=== PATIENT | female | born 1965 | race Native Hawaiian/Other Pacific Islander ===

== ENCOUNTER 2017-03-31 11:46 | Emergency (ER) | payer BC ==
[2017-03-31 12:06] VITALS: BMI 28.8
[2017-03-31] MEDS ORDERED: Sodium Chloride 0.9% 500 ML IV ONE (13:05)
--- NOTE | 2017-03-31 13:32 | C.PDOC ---
History Of Present Illness 51 yr old female with PMhx of hyperthyroid, presents to the ER for evaluation of fever, generalized myalgia, rhinorrhea and non productive cough associated with SOB which all started today. Patient reports getting the flu shot this year. Denies history of diabetes, CHF, COPD. Denies chest pain, nausea, vomiting, abdominal pain, urinary symptoms or headache. Time Seen by Provider: 03/31/17 13:04 Chief Complaint (Nursing): Shortness Of Breath History Per: Patient History/Exam Limitations: no limitations Onset/Duration Of Symptoms: Sudden Onset (today) Past Medical History Reviewed: Historical Data, Nursing Documentation, Vital Signs Vital Signs: Last Vital Signs Temp 98.9 F 03/31/17 15:10 Pulse 92 H 03/31/17 15:10 Resp 18 03/31/17 15:10 BP 109/62 03/31/17 15:10 Pulse Ox 97 03/31/17 15:10 - Medical History PMH: Hypothyroidism, Migraine - [facility] INDIVID PSYCHOTHERAP NEC (10/04/13) Family History: States: No Known Family Hx - Social History Hx Tobacco Use: No Hx Alcohol Use: No Hx Substance Use: No - Immunization History Hx Tetanus Toxoid Vaccination: No Hx Influenza Vaccination: Yes Hx Pneumococcal Vaccination: No Review Of Systems Except As Marked, All Systems Reviewed And Found Negative. Constitutional: Positive for: Fever (subjective), Other ((+) generalized myalgia ) ENT: Positive for: Nose Discharge (clear rhinorrhea). Negative for: Ear Pain, Throat Pain, Throat Swelling Cardiovascular: Negative for: Chest Pain, Palpitations Respiratory: Positive for: Cough (non produtive), Shortness of Breath. Negative for: Wheezing Gastrointestinal: Negative for: Nausea, Vomiting, Abdominal Pain, Diarrhea, Constipation Genitourinary: Negative for: Dysuria, Frequency, Incontinence, Hematuria, Vaginal Discharge, Vaginal Bleeding, Pelvic Pain Skin: Negative for: Rash Neurological: Negative for: Weakness, Numbness, Incoordination, Change in Speech , Confusion, Seizures, Altered Mental Status, Headache, Dizziness Physical Exam - Physical Exam Appears: Well, Non-toxic, No Acute Distress Skin: Warm, Dry, No Rash Head: Atraumatic, Normacephalic Eye(s): bilateral: Normal Inspection, PERRL, EOMI Nose: Normal Oral Mucosa: Moist Lips: Normal Appearing Throat: Normal, No Erythema, No Exudate, No Drooling Neck: Normal, Normal ROM, Supple Chest: Symmetrical, No Tenderness Cardiovascular: Rhythm Regular, No Murmur, Other (tachycardic) Respiratory: Normal Breath Sounds, No Rales, No Rhonchi, No Stridor, No Wheezing Gastrointestinal/Abdominal: Normal Exam, Soft, No Tenderness, No Guarding, No Rebound Back: Normal Inspection, No CVA Tenderness Extremity: Normal ROM, No Swelling Neurological/Psych: Oriented x3, Normal Speech, Normal Motor Gait: Steady ED Course And Treatment - Laboratory Results Result Diagrams: 03/31/17 13:43 03/31/17 13:43 O2 Sat by Pulse Oximetry: 98 (RA) Pulse Ox Interpretation: Normal - Radiology CXR: Viewed By Me, Read By Radiologist CXR Interpretation: Yes: No Acute Disease Medical Decision Making Medical Decision Making: PLAN: * CXR * EKG * VBG * CBC * CMP * Influenza * Urinalysis * Toradol IVP * Sodium Chloride IV Symptoms are consistent with viral illness. Cxray is negative for active disease, fracture, consolidation or effusion as read by me and confirmed by radiologist. EKG shows NSR at 91bpm with normal intervals and no ST changes. Labs grossly normal. Influenza negative but symptoms consistent with flu. Well appearing and tolerating po. Normal vitals after anti-pyretic and IVF. Given detailed return instructions. Disposition - Disposition Disposition: HOME/ ROUTINE Disposition Time: 14:42 Condition: GOOD Additional Instructions: Follow-up with PMD within 2 days. Return to ED if condition worsens. Motrin or tylenol for fever. Instructions: Viral Syndrome (ED) Forms: [facility] (Malay), Work Excuse - Clinical Impression Clinical Impression: Viral illness - Scribe Statement The provider has reviewed the documentation as recorded by the Mamadouibalena Kim Provider Attestation: All medical record entries made by the Mamadouibe were at my direction and personally dictated by me. I have reviewed the chart and agree that the record accurately reflects my personal performance of the history, physical exam, medical decision making, and the department course for this patient. I have also personally directed, reviewed, and agree with the discharge instructions and disposition.
[2017-03-31 13:46] LABS: BASO % 0.2 % (0.0-2.0); EOS % 0.2 % (0.0-4.0); HEMOGLOBIN 12.6 g/dL (11.0-16.0); LYMPH # 0.3 K/uL (1.0-4.3); MEAN CELL VOLUME 80.5 fL (81.0-99.0); MEAN CORPUSCULAR HEMOGLOBIN 27.6 pg (27.0-31.0); MEAN CORPUSCULAR HGB CONC 34.3 g/dL (33.0-37.0); MEAN PLATELET VOLUME 7.8 fL (7.2-11.7); MONO # 0.4 K/uL (0.0-0.8); MONO % 5.9 % (0.0-10.0); NEUT # 5.9 K/uL (1.8-7.0); NEUT % 88.7 % (50.0-75.0); PLATELET COUNT 278 K/uL (130-400); RBC 4.57 Mil/uL (3.80-5.20); RED CELL DISTRIBUTION WIDTH 13.6 % (11.5-14.5); WHITE BLOOD COUNT 6.7 K/uL (4.8-10.8)
[2017-03-31 14:00] LABS: ALB/GLOB RATIO 1.3 (1.0-2.1); ALBUMIN 4.1 g/dL (3.5-5.0); ALT/SGPT 24 U/L (9-52); AST/SGOT 19 U/L (14-36); BLOOD UREA NITROGEN 8 mg/dL (7-17); CALCIUM 8.7 mg/dl (8.6-10.4); GFR AFRICAN-AMERICAN > 60; GFR NON-AFRICAN AMERICAN > 60
[2017-03-31 14:04] LABS: VENOUS BLOOD GAS BASE EXCESS 1.7 mmol/L (0.0-2.0); VENOUS BLOOD GAS PCO2 42 mmHg (40-60); VENOUS BLOOD GAS PO2 33 mm/Hg (30-55); VENOUS BLOOD PH 7.41 (7.32-7.43)
[2017-03-31] MEDS ORDERED: Sodium Chloride 0.9% 1,000 ML ONE (14:10)
--- NOTE | 2017-03-31 14:26 | RAD ---
HISTORY: cough COMPARISON: No prior. TECHNIQUE: Chest PA and lateral FINDINGS: LUNGS: No active pulmonary disease. PLEURA: No significant pleural effusion identified. No pneumothorax apparent. CARDIOVASCULAR: Normal. OSSEOUS STRUCTURES: No significant abnormalities. VISUALIZED UPPER ABDOMEN: Normal. OTHER FINDINGS: None. IMPRESSION: No active disease.
[2017-03-31 15:12] VITALS: BP 109/62; PULSE 92; RESP 18; TEMP 98.9
[2017-03-31 15:24] VITALS: O2SAT 98
[2017-03-31 16:15] LABS: EOSINOPHIL 2 % (0-4); LYMPHOCYTE 5 % (20-40); MONOCYTE 6 % (0-10); NEUTROPHIL 87 % (50-75); PLATELET ESTIMATE NORMAL (NORMAL); TOTAL CELLS COUNTED 100
--- NOTE | 2017-03-31 20:50 | CARD ---
APPROVED REPORT EKG Measurement Heart [id number] <Conclusion> Normal sinus rhythm Normal ECG
== END 2017-03-31 15:21 | disposition home or self-care (01) ==
LOC: C.ER 11:46
DX: B34.9 Viral infection, unspecified (principal)
CPT/HCPCS: 71046; 80053; 82803; 85025; 87040; 87804; 93005; 96361; 96374; 99283; J1885; J7040